=== PATIENT | female | born 1950 | race African-American/Black ===

== ENCOUNTER → 2019-08-14 | Day surgery (SDC) | payer MEDICARE, OTHER ==
[~2019-08-14] MED LIST: LIDOCAINE 1% INJ-PF (10 MG/ML) 30 ML SDV ONE
--- NOTE | 2019-08-14 14:17 | RADIOLOGY REPORT (SQ) ---
EXAM DESCRIPTION: FLUORO/NEEDLE PLACEMENT COMPLETED DATE/TIME: 08/14/2019 1:39 pm REASON FOR STUDY: M16.11 UNILATERAL PRIMARY OSTEOARTHRITIS, RIGHT HIP M16.11 UNILATERAL PRIMARY OST EOARTHRITIS, RIGHT HIP COMPARISON: None. FLUOROSCOPY TIME: 0.2 minutes 1 images saved to PACS. LIMITATIONS: None. PROCEDURE: Procedure, risks, benefits and alternatives explained to patient who then gave written c onsent. The right hip was marked and a time-out was called for correct marking verification. Entry site marked using fluoroscopic guidance. Hip prepped and draped using sterile technique. Local ane sthesia achieved using 1% lidocaine injection. Hypodermic needle introduced into the joint space un claudia direct fluoroscopic visualization. Non-ionic contrast instilled to confirm intra-articular posit ion. Dilute gadolinium solution then injected. Needle removed and entry site covered with sterile bandage. No immediate complications noted. TECHNIQUE: Digital images acquired during fluoroscopy and stored on PACS. Patient immediately take n to the MR suite for additional imaging. INJECTION LOCATION: Right hip. CONTRAST TYPE AND AMOUNT: 9 mL Dotarem/Saline mixture. IMPRESSION: SUCCESSFUL NEEDLE PLACEMENT AND INJECTION FOR RIGHT HIP MR ARTHROGRAM. COMMENT: Quality ID [id number]: Final reports for procedures using fluoroscopy that document radiation exp osure indices, or exposure time and number of fluorographic images (if radiation exposure indices are not available) TECHNICAL DOCUMENTATION: JOB ID: [id number] [employer]- All Rights Reserved Reading location - IP/workstation name: [email or web address]
--- NOTE | 2019-08-14 14:21 | RADIOLOGY REPORT (SQ) ---
EXAM DESCRIPTION: ARTHRO HIP INJ W/ANESTHESIA COMPLETE DATE/TIME: 08/14/2019 1:39 pm REASON FOR STUDY: M16.11 UNILATERAL PRIMARY OSTEOARTHRITIS, RIGHT HIP M16.11 UNILATERAL PRIMARY OST EOARTHRITIS, RIGHT HIP FINDINGS: Please see combined report for performance of procedure and radiologic supervision and int erpretation. IMPRESSION: Please see combined report for performance of procedure and radiologic supervision and i nterpretation. Reading location - IP/workstation name: [email or web address]
--- NOTE | 2019-08-15 06:51 | RADIOLOGY REPORT (SQ) ---
EXAM DESCRIPTION: MRI RT LOWER JOINT WITH COMPLETED DATE/TIME: 08/14/2019 2:11 pm REASON FOR STUDY: M16.11 UNILATERAL PRIMARY OSTEOARTHRITIS, RIGHT HIP M16.11 UNILATERAL PRIMARY OST EOARTHRITIS, RIGHT HIP COMPARISON: None. TECHNIQUE: Post arthrogram imaging is performed using T1 and T1 and T2 fat saturated sequences of th e pelvis and specific hip of interest. LIMITATIONS: Motion. FINDINGS: No evidence of AVN. Advanced osteoarthritis in both hips, more extensive in the right hip were there is extensive subchondral cyst formation in the acetabulum. SI joints are normal. No lola dence of insufficiency fracture. No bursal fluid collection. Hamstring origins are normal. Sciatic nerve as visualized is normal. IMPRESSION: Osteoarthritis, more advanced in the right hip. TECHNICAL DOCUMENTATION: JOB ID: [id number] [employer]- All Rights Reserved Reading location - IP/workstation name: [email or web address] [email or web address] OPERATOR [email or web address]
== END ==
LOC: RAD 12:43
PROVIDERS: ATTEND Physician Assistant
DX: M16.11 Unilateral primary osteoarthritis, right hip (principal)
CPT/HCPCS: 73722; 77002; 27095; A9576; J3490

== ENCOUNTER → 2019-10-22 | Outpatient (CLI) | payer MEDICARE, OTHER ==
--- NOTE | 2019-10-22 12:37 | RADIOLOGY REPORT (SQ) ---
EXAM DESCRIPTION: CHEST PA/LATERAL COMPLETED DATE/TIME: 10/22/2019 11:56 am REASON FOR STUDY: ENCOUNTER FOR PREPROCEDURAL CARDIOVASCULAR EXAMINATION COMPARISON: None. EXAM PARAMETERS: NUMBER OF VIEWS: two views TECHNIQUE: Digital Frontal and Lateral radiographic views of the chest acquired. RADIATION DOSE: NA LIMITATIONS: none FINDINGS: LUNGS AND PLEURA: No opacities, masses or pneumothorax. No pleural effusion. MEDIASTINUM AND HILAR STRUCTURES: No masses or contour abnormalities. HEART AND VASCULAR STRUCTURES: Heart normal size. No evidence for failure. BONES: No acute findings. HARDWARE: None in the chest. OTHER: No other significant finding. IMPRESSION: NO SIGNIFICANT RADIOGRAPHIC FINDING IN THE CHEST. TECHNICAL DOCUMENTATION: JOB ID: [id number] [employer] All Rights Reserved Reading location - IP/workstation name: [email or web address]
[2019-10-22 12:42] LABS: ABSOLUTE BASOPHILS # (AUTO) 0.1 10^3/uL (0.0-0.2); ABSOLUTE EOSINOPHILS # (AUTO) 0.2 10^3/uL (0.0-0.6); ABSOLUTE LYMPHOCYTES (AUTO) 4.2 10^3/uL (0.5-4.7); ABSOLUTE MONOCYTES (AUTO) 1.1 10^3/uL (0.1-1.4); ABSOLUTE NEUT (AUTO) 6.9 10^3/uL (1.7-8.2); BASOPHILS % (AUTO) 0.6 % (0-2); EOSINOPHILS % (AUTO) 1.5 % (0-6); HEMATOCRIT 42.3 % (36.0-47.0); HEMOGLOBIN 14.2 g/dL (12.0-15.5); LYMPHOCYTES % (AUTO) 33.4 % (13-45); MEAN CORPUSCULAR HEMOGLOBIN 29.3 pg (27.0-33.4); MEAN CORPUSCULAR HGB CONC 33.5 g/dL (32.0-36.0); MEAN CORPUSCULAR VOLUME 87 fl (80-97); PLATELET COUNT 298 10^3/uL (150-450); RED BLOOD COUNT 4.85 10^6/uL (3.72-5.28); RED CELL DISTRIBUTION WIDTH 14.3 % (11.5-14.0); SEGMENTED NEUTROPHILS % (AUTO) 55.5 % (42-78); TOTAL CELLS COUNTED % (AUTO) 100 %; WHITE BLOOD COUNT 12.4 10^3/uL (4.0-10.5)
[2019-10-22 12:58] LABS: APPEARANCE,URINE CLEAR; BILIRUBIN,URINE NEGATIVE (NEGATIVE); COLOR,URINE YELLOW; GLUCOSE, URINE NEGATIVE (NEGATIVE); KETONES,URINE NEGATIVE (NEGATIVE); LEUKOCYTE ESTERASE,URINE NEGATIVE (NEGATIVE); NITRITE,URINE NEGATIVE (NEGATIVE); PROTEIN,URINE NEGATIVE (NEGATIVE); URINE SPECIFIC GRAVITY 1.024; UROBILINOGEN,URINE NEGATIVE mg/dL (<2.0)
[2019-10-22 13:10] LABS: ALBUMIN 4.1 g/dL (3.5-5.0); ANION GAP 11 (5-19); BLOOD UREA NITROGEN 21 mg/dL (7-20); C-REACTIVE PROTEIN 11.6 mg/L (<10.0); CALCIUM 10.3 mg/dL (8.4-10.2); CARBON DIOXIDE 30 mmol/L (22-30); CHLORIDE 102 mmol/L (98-107); GLUCOSE 85 mg/dL (75-110); POTASSIUM 4.3 mmol/L (3.6-5.0)
[2019-10-22 13:13] LABS: PREALBUMIN 20.4 mg/dL (17.6-36.0)
[2019-10-22 13:30] LABS: ERYTHROCYTE SEDIMENTATION RATE 8 mm/hr (0-30)
--- NOTE | 2019-10-22 13:49 | EKG REPORT ---
SEVERITY:- ABNORMAL ECG - BRADYCARDIA WITH IRREGULAR RATE 39-55 SECOND DEGREE MOBITZ I AV BLOCK WITH JUNCTIONAL ESCAPE RHYTHM : Confirmed by: Stoney Garcia MD 22-Oct-2019 13:48:19
== END ==
LOC: OD 11:05
PROVIDERS: ATTEND Orthopaedic Surgery
DX: I10 Essential (primary) hypertension (principal); Z01.810 Encounter for preprocedural cardiovascular examination; Z01.818 Encounter for other preprocedural examination; Z01.812 Encounter for preprocedural laboratory examination
CPT/HCPCS: 36415; 71046; 80048; 81001; 82040; 82306; 84134; 85025; 85652; 86140; 93005; 93010

== ENCOUNTER → 2019-11-05 | Outpatient (CLI) | payer MEDICARE, OTHER | LOC: OD 15:00 | PROVIDERS: ATTEND Orthopaedic Surgery | DX: R79.82 Elevated C-reactive protein (CRP) (principal) | CPT/HCPCS: 36415; 86140 ==

== ENCOUNTER 2019-11-19 07:43 | Observation (INO) | payer MEDICARE, OTHER ==
[~2019-11-19 07:43] MED LIST changes: +ACETAMINOPHEN 325 MG TABLET PO PRN; +CEFAZOLIN SODIUM 2 GM in DEXTROSE 5%-WATER 100 ML IV PRN; +CELECOXIB 200 MG CAPSULE PO PRN; +GABAPENTIN 100 MG CAPSULE PO PRN; +LACTATED RINGERS 1000 ML IV PRN; -LIDOCAINE 1% INJ-PF (10 MG/ML) 30 ML SDV ONE; +ONDANSETRON HCL INJ/PF 4 MG/2 ML SDV IV PRN; +OXYCODONE HCL SR 10 MG TABLET PO PRN; +SCOPOLAMINE HYDROBROMIDE 1.5 MG PATCH.TD72 TD PRN; +TRAMADOL HCL 50 MG TABLET PO PRN; +TRANEXAMIC ACID INJ/PF 1,000 MG/10 ML SDV IV PRN; +VANCOMYCIN HCL 1,000 MG in DEXTROSE 5%-WATER 250 ML IV PRN
[2019-11-19] MEDS ORDERED: CELECOXIB 200 MG CAPSULE ONE (08:03)
[2019-11-19] MEDS ORDERED: ACETAMINOPHEN 325 MG TABLET ONE (08:03)
[2019-11-19] MEDS ORDERED: GABAPENTIN 100 MG CAPSULE ONE (08:04)
[2019-11-19] MEDS ORDERED: ONDANSETRON HCL INJ/PF 4 MG/2 ML SDV ONE (08:04)
[2019-11-19] MEDS ORDERED: SCOPOLAMINE HYDROBROMIDE 1.5 MG PATCH.TD72 ONE (08:04)
[2019-11-19] MEDS ORDERED: TRAMADOL HCL 50 MG TABLET ONE (08:04)
[2019-11-19] MEDS ORDERED: OXYCODONE HCL SR 10 MG TABLET PO ONE (08:04)
[2019-11-19] MEDS ORDERED: ALBUTEROL SULFATE 0.083% NEB 2.5 MG/3 ML AMPUL NEB ONE (08:59)
[2019-11-19] MEDS ORDERED: RINGERS SOLUTION,LACTATED 1,000 ML IV PRN (09:08)
[2019-11-19] MEDS ORDERED: DEXAMETHASONE SOD PHOSPHATE INJ 4 MG/1 ML VIAL ONE (09:36)
[2019-11-19] MEDS ORDERED: GLYCOPYRROLATE 1 MG/5 ML VIAL ONE (09:36)
[2019-11-19] MEDS ORDERED: LIDOCAINE 2% INJ-PF (20 MG/ML) 2 ML AMPUL ONE (09:36)
[2019-11-19] MEDS ORDERED: VANCOMYCIN HCL INJ 1000 MG VIAL ONE (11:35)
[2019-11-19] MEDS ORDERED: KETOROLAC TROMETHAMINE INJ/PF 30 MG/1 ML SDV ONE (11:35)
[2019-11-19] MEDS ORDERED: GENTAMICIN SULFATE INJ 80 MG/2 ML VIAL ONE (11:36)
[2019-11-19] MEDS ORDERED: BACITRACIN INJ 50,000 UNIT VIAL ONE (11:36)
[2019-11-19] MEDS ORDERED: PROPOFOL INJ 200 MG/20 ML VIAL IV ONE ×2 (11:37→11:39)
[2019-11-19] MEDS ORDERED: FENTANYL CITRATE INJ/PF 100 MCG/2 ML AMPUL ONE (11:37)
[2019-11-19] MEDS ORDERED: MIDAZOLAM 2 MG/2 ML INJ ONE (11:37)
[2019-11-19] MEDS ORDERED: LIDOCAINE 1% INJ-PF (10 MG/ML) 30 ML SDV ONE (11:39)
[2019-11-19] MEDS ORDERED: EPINEPHRINE INJ/PF 1 MG/1 ML AMPULE ONE (11:55)
[2019-11-19] MEDS ORDERED: TRANEXAMIC ACID INJ/PF 1,000 MG/10 ML SDV ONE (11:58)
[2019-11-19] MEDS ORDERED: EPHEDRINE SULFATE INJ 50 MG/1 ML AMPULE ONE (12:42)
[2019-11-19] MEDS: BUPIVACAINE HCL 0.25 % INJ/PF (2.5 MG/1 ML) 30 ML VIAL ONE ×2 (13:50→14:07)
[2019-11-19] MEDS ORDERED: FENTANYL CITRATE INJ/PF 100 MCG/2 ML AMPUL IV PRN ×3 (14:04)
[2019-11-19] MEDS ORDERED: MORPHINE SULFATE 10 MG/ML INJ IV PRN ×2 (14:04→14:39)
[2019-11-19] MEDS ORDERED: PROMETHAZINE HCL INJ 25 MG/1 ML VIAL IV PRN ×2 (14:04)
[2019-11-19] MEDS ORDERED: MEPERIDINE HCL/PF INJ 25 MG/1 ML DISP.SYRIN IV PRN (14:04)
--- NOTE | 2019-11-19 14:25 | Operative Report ---
Operative Report DATE OF SURGERY: 11/19/19 PREOPERATIVE DIAGNOSIS: Right hip primary osteoarthritis, severe POSTOPERATIVE DIAGNOSIS: Right hip primary osteoarthritis, severe OPERATION: Right total hip arthroplasty SURGEON: SUDHAKAR PEREZ JR ANESTHESIA: Spinal COMPLICATIONS: None ESTIMATED BLOOD LOSS: 150 cc PROCEDURE: Implants: 50 mm G7 acetabular shell, 32 mm neutral liner, #10 high offset Taperloc micro-plasty, 32 mm -6 neck length head BRIEF HISTORY: 69 year old female with severe degenerative arthritis of right hip, which has failed conservative treatment and has elected for a total hip arthroplasty. Risks include but are not limited to bleeding, infection, anesthesia, , injury to nerve or vessel, pain, scar, leg length inequality, dislocation, future surgery, and blood clots. Patient read through the pre-op counseling form and signed and solicited for surgery on their right hip. OPERATIVE PROCEDURE: Patient was brought to the operating room on and underwent spinal anesthesia. 2 grams of Ancef and 1 g of vancomycin was given. After proper anesthesia was obtained, patient was positioned, padded, prepped, and draped in the usual sterile fashion on the operating room table. Appropriate time out was performed. A anterior approach to the hip was undertaken with meticulous hemostasis. The femoral neck was cut in line with the femoral broach and the femoral head was removed. The acetabulum was then exposed with three retractors in an atraumatic fashion. Soft tissue and osteophytes were removed. Medialization reaming was performed followed by anatomic reaming up to accept a 50 mm acetabulum. The 50 mm acetabulum was impacted into correct position and stability checked with Parag test. A standard liner was impacted into the shell with good stability. Potential impinging osteophytes were removed. Attention was then directed toward the femur, which was exposed with two retractors in an atraumatic fashion. spread cutter, lateralization rasping and then broaching up to accept a #10 femur. With a lateral offset neck and a -6 head, stability was good in flexion and extension with equal leg lengths. The real lateral offset femur was impacted into a copiously irrigated femoral canal. A -6 x 32 mm head was impacted on a clean dry femoral taper. The hip was irrigated and reduced, further irrigation with antibiotic solution, betadine solution, then antibiotic solution. Bleeders were coagulated with bovie cautery. The fascia was then closed with number 2 Stratofix; the subcutaneous tissue closed with interrupted 2-0 Vicryl then running 3-0 monocryl subcuticular. Dermabond skin glue was applied followd by a silver dressing. All needle sponge and instrument counts were correct. Patient was awakened from sedation anesthesia and taken to recovery room in good condition. Thank you, Sudhakar Perez, DO
[2019-11-19] MEDS ORDERED: OXYCODONE HCL IR 5 MG TABLET PO PRN (14:38)
[2019-11-19] MEDS ORDERED: OXYCODONE HCL SR 10 MG TABLET PO PRN (14:38)
[2019-11-19] MEDS ORDERED: TRAMADOL HCL 50 MG TABLET PO PRN (14:40)
[2019-11-19] MEDS ORDERED: PANTOPRAZOLE SODIUM 20 MG TABLET.DR PO PRN (14:47)
[2019-11-19] MEDS ORDERED: DIPHENHYDRAMINE HCL 25 MG CAPSULE PO PRN (14:48)
[2019-11-19] MEDS ORDERED: ZOLPIDEM TARTRATE 5 MG TABLET PO PRN (14:49)
[2019-11-19] MEDS ORDERED: DOCUSATE SODIUM 100 MG CAPSULE PO PRN (14:50)
[2019-11-19] MEDS ORDERED: ONDANSETRON 4 MG TAB.RAPDIS PO PRN (14:51)
[2019-11-19] MEDS ORDERED: NORMAL SALINE 1000 ML 1,000 ML IV PRN (14:51)
[2019-11-19] MEDS ORDERED: GLYCOPYRROLATE INJ 0.4 MG/2 ML VIAL ONE (15:11)
[2019-11-19] MEDS ORDERED: DEXAMETHASONE SOD PHOS INJ 10 MG/1 ML VIAL ONE (15:41)
--- NOTE | 2019-11-19 15:55 | RADIOLOGY REPORT (SQ) ---
EXAM DESCRIPTION: HIP RIGHT AP/LATERAL COMPLETED DATE/TIME: 11/19/2019 3:01 pm REASON FOR STUDY: Post op M16.11 UNILATERAL PRIMARY OSTEOARTHRITIS, RIGHT HIP COMPARISON: None. NUMBER OF VIEWS: Two view(s). TECHNIQUE: Digital radiographic images of the right hip post-procedure. LIMITATIONS: None. FINDINGS: BONES: No worrisome or unexpected findings post-procedure. DEVICE: Total hip replacement. Components of the device in appropriate location. SOFT TISSUES: No worrisome findings. Expected postoperative soft tissue changes. IMPRESSION: SATISFACTORY POSTOPERATIVE RIGHT HIP. TECHNICAL DOCUMENTATION: JOB ID: [id number] [email or web address]- All Rights Reserved Reading location - IP/workstation name: [email or web address]
[2019-11-19] MEDS ORDERED: GLYCOPYRROLATE INJ 0.4 MG/2 ML VIAL IM ONE (17:15)
[2019-11-19] MEDS: KETOROLAC TROMETHAMINE INJ/PF 30 MG/1 ML SDV IV SCH (17:47)
[2019-11-19] MEDS: ACETAMINOPHEN 325 MG TABLET PO SCH (17:48)
[2019-11-19] MEDS: GABAPENTIN 100 MG CAPSULE PO SCH (17:48)
--- NOTE | 2019-11-19 17:50 | RADIOLOGY REPORT (SQ) ---
EXAM DESCRIPTION: HIP IN OPERATING RM; NO CHG FLUORO COMPLETED DATE/TIME: 11/19/2019 5:32 pm REASON FOR STUDY: RIGHT HIP ARTHROPLASTY ASST WITH FLUORO IN OR M16.11 UNILATERAL PRIMARY OSTEOARTH RITIS, RIGHT HIP COMPARISON: None. FLUOROSCOPY TIME: Less than 5 seconds 2 digital fluoroscopic images saved to PACS. TECHNIQUE: Intra-operative images acquired during surgical procedure to evaluate progress. NUMBER OF IMAGES: 2 digital fluoroscopic images LIMITATIONS: None. FINDINGS: Intra procedural imaging with temporary hip prosthesis. Please see the operative report f or further details IMPRESSION: IMAGE(S) OBTAINED DURING PROCEDURE. COMMENT: Quality ID 145: Final reports for procedures using fluoroscopy that document radiation exp osure indices, or exposure time and number of fluorographic images (if radiation exposure indices are not available) Please consult full operative report of the attending physician for description of the procedure. TECHNICAL DOCUMENTATION: JOB ID: [id number] [employer]- All Rights Reserved Reading location - IP/workstation name: [email or web address]
--- NOTE | 2019-11-19 17:50 | RADIOLOGY REPORT (SQ) ---
EXAM DESCRIPTION: HIP IN OPERATING RM; NO CHG FLUORO COMPLETED DATE/TIME: 11/19/2019 5:32 pm REASON FOR STUDY: RIGHT HIP ARTHROPLASTY ASST WITH FLUORO IN OR M16.11 UNILATERAL PRIMARY OSTEOARTH RITIS, RIGHT HIP COMPARISON: None. FLUOROSCOPY TIME: Less than 5 seconds 2 digital fluoroscopic images saved to PACS. TECHNIQUE: Intra-operative images acquired during surgical procedure to evaluate progress. NUMBER OF IMAGES: 2 digital fluoroscopic images LIMITATIONS: None. FINDINGS: Intra procedural imaging with temporary hip prosthesis. Please see the operative report f or further details IMPRESSION: IMAGE(S) OBTAINED DURING PROCEDURE. COMMENT: Quality ID 145: Final reports for procedures using fluoroscopy that document radiation exp osure indices, or exposure time and number of fluorographic images (if radiation exposure indices are not available) Please consult full operative report of the attending physician for description of the procedure. TECHNICAL DOCUMENTATION: JOB ID: [id number] [employer]- All Rights Reserved Reading location - IP/workstation name: [email or web address]
[2019-11-19] MEDS ORDERED: CIDER VINEGAR PO SCH (18:00)
[2019-11-19] MEDS ORDERED: [UNRECOGNIZED DRUG - OTHER] PO SCH (18:00)
[2019-11-19] MEDS ORDERED: (PENDING PHARMACY ID) (Calcium Carb/Vitamin D3/Vit K1 [Calcium + D Soft Chewable Tab] 1 TA PO SCH (18:00)
[2019-11-19] MEDS: CEFAZOLIN SODIUM 2 GM in DEXTROSE 5%-WATER 100 ML IV SCH (18:34)
[2019-11-19] MEDS ORDERED: ATORVASTATIN CALCIUM 10 MG TABLET PO SCH (22:00)
[2019-11-20] MEDS: ACETAMINOPHEN 325 MG TABLET PO SCH ×2 (02:43→10:59)
[2019-11-20] MEDS: CEFAZOLIN SODIUM 2 GM in DEXTROSE 5%-WATER 100 ML IV SCH (02:44)
[2019-11-20] MEDS: KETOROLAC TROMETHAMINE INJ/PF 30 MG/1 ML SDV IV SCH ×2 (02:44→11:23)
[2019-11-20] MEDS ORDERED: ASPIRIN 325 MG TABLET PO SCH (10:00)
[2019-11-20] MEDS ORDERED: CALCIUM CARBONATE 250 MG/VITAMIN D3 125 UNIT TABLET PO SCH (10:00)
[2019-11-20] MEDS ORDERED: HYDROCHLOROTHIAZIDE 12.5 MG TABLET PO SCH (10:00)
[2019-11-20] MEDS ORDERED: MULTIVITAMIN TABLET PO SCH (10:00)
[2019-11-20] MEDS ORDERED: POLYETHYLENE GLYCOL 3350 POWDER 17 GM/1 PACKET PO SCH (10:00)
[2019-11-20] MEDS ORDERED: (PENDING PHARMACY ID) (Diltiazem Hcl [Diltiazem 24hr Er] 360 MG) PO SCH (10:00)
[2019-11-20] MEDS ORDERED: CELECOXIB 200 MG CAPSULE PO SCH (10:00)
[2019-11-20] MEDS ORDERED: LOSARTAN POTASSIUM 50 MG TABLET PO SCH (10:00)
[2019-11-20] MEDS ORDERED: (PENDING PHARMACY ID) (Pravastatin Sodium [Pravachol] 40 MG) PO SCH (10:00)
[2019-11-20 10:53] VITALS: BP 124/47
[2019-11-20] MEDS: GABAPENTIN 100 MG CAPSULE PO SCH (10:59)
--- NOTE | 2019-11-20 14:24 | EKG REPORT ---
SEVERITY:- ABNORMAL ECG - SINUS BRADYCARDIA FIRST DEGREE AV BLOCK BORDERLINE LEFT AXIS DEVIATION CONSIDER ANTERIOR INFARCT : Confirmed by: Annette Dimas 20-Nov-2019 14:24:26
--- NOTE | 2019-11-22 11:37 | PDOC DISCHARGE SUMMARY ---
Impression - Admit/DC Date/PCP Admission Date/Primary Care Provider: 11/19/19 07:43 IRENA WADDELL Discharge Date: 11/22/19 - Assessment Summary: Mrs. Greco is a very pleasant 69-year-old female who presented to my clinic with chronic right hip pain that is been going on for over a year. After thorough work-up and attempts at conservative treatment including activity modification and [id number] pain medication, they were having severe difficulty with ambulation and was over the counter pain medication for daily activity. They found the pain debilitating and decreasing thier quality of life as they were unable to perform activities of daily living such as ambulating short distances and getting in and out of the car. After a thorough work-up including x-rays that demonstrated joint space narrowing, [id number]-mmol contact, subchondral sclerosis, and osteophyte formation as well as discussing risks and benefits and other treatment options, the patient elected to proceed with a right total hip arthroplasty. They were brought to the operating room on 11/19/2019 and underwent a right total hip arthroplasty and tolerated procedure very well with out complication. They were then admitted to the hospital floor for postoperative medical management, monitoring, and pain control. On postoperative day #1 they were ambulating well with physical therapy, to the degree that they approved them for discharge home. They were discharged home on 11/20/2019. They had no acute events or complications over the course of their stay. All detailed instructions and prescriptions were provided to the patient prior to admission on the year prior office visit. - Additional Information Resuscitation Status: Full Code Discharge Diet: As Tolerated Discharge Activity: Activity As Tolerated, No Driving, Keep Legs Elevated, No Lifting Over 10 Pounds, Slowly Increase Activity, Walk Frequently Referrals: BUZZ PEREZ JR, DO [ACTIVE PROVISIONAL STAFF] - 12/02/19 10:05 am Home Medications: Aspirin [Aspirin 81 mg Chewable Tablet] 81 mg PO DAILY 10/31/19 Cider Vinegar [Apple Cider Vinegar 500 mg Tablet] 1,500 mg PO TID 10/31/19 Diltiazem HCl [Diltiazem 24Hr ER] 360 mg PO DAILY 10/31/19 Hydrochlorothiazide 12.5 mg PO DAILY 10/31/19 Losartan Potassium 50 mg PO DAILY 10/31/19 Multivit-Min/Iron/Folic/Lutein [Centrum Silver Women Tablet] 1 tab PO DAILY 10/31/19 Pravastatin Sodium [Pravachol] 40 mg PO DAILY 10/31/19 Calcium Carb/Vitamin D3/Vit K1 [Calcium + D Soft Chewable Tab] 1 tab PO BID 11/07/19 Acetaminophen [Tylenol 325 mg Tablet] 975 mg PO PREOP PRN tablet 11/19/19 Celecoxib [Celebrex 200 mg Capsule] 200 mg PO PREOP PRN capsule 11/19/19 Gabapentin [Neurontin 100 mg Capsule] 100 mg PO PREOP PRN capsule 11/19/19 Oxycodone HCl [Oxycontin Sr 10 mg Tablet] 10 mg PO PREOP PRN tab.sr.12h 11/19/19 Tramadol HCl [Ultram 50 mg Tablet] 50 mg PO PREOP PRN tablet 11/19/19 History of Present Illiness History of Present Illness: RENEE PATTERSON is a 69 year old female Physical Exam Vital Signs: Temp Pulse Resp BP Pulse Ox 97.9 F 96 19 124/47 L 95 11/20/19 10:50 11/20/19 10:50 11/20/19 10:50 11/20/19 10:50 11/20/19 10:50 Results Laboratory Results: Potassium 3.9 mmol/L (3.6-5.0) 11/19/19 08:15 Blood Type O POSITIVE 11/19/19 08:15 Antibody Screen NEGATIVE 11/19/19 08:15 Impressions: Fluoroscopy 11/19/19 00:00 IMPRESSION: IMAGE(S) OBTAINED DURING PROCEDURE. Hip X-Ray 11/19/19 00:00 IMPRESSION: IMAGE(S) OBTAINED DURING PROCEDURE. Hip/Pelvis X-Ray 11/19/19 00:00 IMPRESSION: SATISFACTORY POSTOPERATIVE RIGHT HIP. Stroke Is this a Stroke Patient?: No Acute Heart Failure - Is this a Heart Failure Patient?: No
== END 2019-11-20 12:35 | disposition home or self-care (01) ==
LOC: INTOOBSV 07:43 → INOR 07:43 → 4N 16:17
PROVIDERS: ADMIT Orthopaedic Surgery; ATTEND Orthopaedic Surgery
DX: M16.11 Unilateral primary osteoarthritis, right hip (principal); I10 Essential (primary) hypertension; J44.9 Chronic obstructive pulmonary disease, unspecified; F17.200 Nicotine dependence, unspecified, uncomplicated; Z79.82 Long term (current) use of aspirin; Z79.899 Other long term (current) drug therapy
CPT/HCPCS: 27130; C1776; 01214; 36415; 84132; 86850; 86900; 86901; 93005; 93010; J0171; J0690; J1100; J1580; J1885; J2250; J2405; J2704; J3010; J3370; J3490; J7030; J7060; J7120